=== PATIENT | female | born 1960 | race Caucasian/White ===

== ENCOUNTER 2022-11-07 22:40 | Observation (INO) | payer OTHER ==
[2022-11-08 00:10] LABS: Absolute Lymphocytes (CBC) 2.2 K/uL (0.7-4.9); Hematocrit 37.3 % (36.0-45.0); Lymphocytes % 25.5 % (15.3-44.8); MCV 86.2 fL (80-100); MPV 7.3 fL (7.6-11.3); RBC Red Blood Cell Count 4.32 M/uL (3.86-4.86)
[2022-11-08 00:13] LABS: Protime INR 1.18
[2022-11-08 00:28] LABS: ALT/SGPT 21 U/L (13-56); AST/SGOT 15 U/L (15-37); Albumin 3.3 g/dL (3.4-5.0); Alkaline Phosphatase 120 U/L (45-117); BUN Blood Urea Nitrogen 24 mg/dL (7-18); Bicarbonate 26 mEq/L (21-32); Bilirubin Total 0.2 mg/dL (0.2-1.0); Glomerular Filtration Rate 78 ml/min (=/>90); Glucose Level 127 mg/dL (74-106); NT PRO-BNP 248 pg/mL (<125); Potassium 3.2 mEq/L (3.5-5.1); Protein, Total 6.7 g/dL (6.4-8.2); Sodium Level 138 mEq/L (136-145); Troponin High Sensitivity 34.7 pg/mL (<58.9)
[2022-11-08 00:30] LABS: Bilirubin Direct < 0.1 mg/dL (0-0.2)
[2022-11-08 00:31] LABS: Bilirubin Indirect, Calculated ND mg/dL (0.2-0.8)
[2022-11-08] MEDS ORDERED: METHYLPREDNISOLONE 125 MG INJ ONE (01:18)
[2022-11-08] MEDS ORDERED: ONDANSETRON 4 MG/2 ML VIAL ONE (01:19)
[2022-11-08] MEDS ORDERED: LEVALBUTEROL 1.25 MG/3 ML NEB ONE (01:19)
[2022-11-08 01:39] LABS: Specific Gravity 1.013 (1.005-1.030); Urine Bacteria <20 /HPF (<20); Urine Bilirubin NEGATIVE (Negative); Urine Blood Negative (Negative); Urine Clarity Clear (Clear); Urine Color Light-Yellow (Yellow); Urine Glucose NEGATIVE (Negative); Urine Mucus 1+ /HPF (None Seen); Urine Protein NEGATIVE (Negative); Urine RBC <5 /HPF (None Seen); Urine Urobilinogen Normal (Normal)
[2022-11-08] MEDS ORDERED: POTASSIUM 25 MEQ EFFERV TAB ONE (01:42)
--- NOTE | 2022-11-08 01:51 | ER ---
Nurse's Notes [facility] Name: Adilia Raajn Age: 62 yrs Sex: Female : 1960 Arrival Date: 11/07/2022 Time: 22:40 Bed 16 Private MD: Diagnosis: Chest pain, unspecified;Obesity, unspecified;Hypertensive heart disease without heart failure;Shortness of breath Presentation: 11/07 23:45 Chief complaint: Patient states: mid to left side chest pain of 6 with lightheadedness, pf1 nausea and left arm numbness,onset 0. Patient stated the symptoms started while sleeping. Patient stated took ASA 162 mg LOFTSMAN/WOMAN. Coronavirus screen: Vaccine status: Patient reports receiving the 2nd dose of the covid vaccine. Moderna Client denies travel out of the [place] in the last 14 days. At this time, the client does not indicate any symptoms associated with coronavirus-19. Ebola Screen: Patient negative for fever greater than or equal to 101.5 degrees Fahrenheit, and additional compatible Ebola Virus Disease symptoms. Initial Sepsis Screen: Does the patient meet any 2 criteria? No. Patient's initial sepsis screen is negative. Does the patient have a suspected source of infection? No. Patient's initial sepsis screen is negative. Risk Assessment: Do you want to hurt yourself or someone else? Patient reports no desire to harm self or others. 23:45 Method Of Arrival: Wheelchair pf1 23:45 Acuity: EVELINA 2 pf1 11/08 02:03 Onset of symptoms was November 07, 2022. rv Historical: - Allergies: 11/07 23:47 No Known Allergies; pf1 - Home Meds: 23:47 losartan oral [Active]; Synthroid Oral [Active]; hydrochlorothiazide Oral [Active]; pf1 Albuterol Inhl [Active]; - PMHx: 23:47 Hypertensive disorder; Hypercholesterolemia; Asthma; Hypothyroidism; pf1 - Immunization history:: Adult Immunizations up to date, Last tetanus immunization: > 10 years ago Flu vaccine is not up to date. - Social history:: Smoking status: Patient denies any tobacco usage or history of. Patient/guardian denies using alcohol, street drugs. Screenin/28 02:02 [facility] ED Fall Risk Assessment (Adult) History of falling in the last 3 months, rv including since admission No falls in past 3 months (0 pts). Abuse screen: Denies threats or abuse. Denies injuries from another. Nutritional screening: No deficits noted. Tuberculosis screening: No symptoms or risk factors identified. Assessment: 00:00 General: Appears uncomfortable, Behavior is calm, cooperative. rv 00:00 Pain: Complains of pain in chest. Neuro: Level of Consciousness is awake, alert, obeys rv commands, Oriented to person, place, time, Appropriate for age. Cardiovascular: Capillary refill < 3 seconds Rhythm is sinus rhythm. Respiratory: Airway is patent. GI: No deficits noted. No signs and/or symptoms were reported involving the gastrointestinal system. : No deficits noted. No signs and/or symptoms were reported regarding the genitourinary system. 01:00 Reassessment: [id number] Antonia Rajan. rv Vital Signs: 11/07 23:45 BP 156 / 89; Pulse 81; Resp 18; Temp 98.1; Pulse Ox 96% on R/A; Weight 127.01 kg; pf1 Height 5 ft. 11 in. ; Pain 6/10; 11/08 00:30 BP 145 / 91; Pulse 78; Resp 16; Pulse Ox 96% on R/A; jb4 11/07 23:45 Body Mass Index 39.05 (127.01 kg, 180.34 cm) pf1 11/07 23:45 Pain Scale: Adult pf1 ED Course: 11/07 22:43 Patient arrived in ED. rv1 22:56 Brad Chua PA is PHCP. cp 22:56 Cooper Martin MD is Attending Physician. cp 23:41 XRAY Chest (1 view) In Process Unspecified. EDMS 23:47 Triage completed. pf1 23:50 Inserted saline lock: 20 gauge in left antecubital area, using aseptic technique. Blood rv collected. 23:50 No provider procedures requiring assistance completed. rv 11/08 00:12 Josue Guzman, GEMA is Primary Nurse. jb4 01:49 Tan Marti MD is Hospitalizing Provider. cp 02:01 Patient admitted, IV remains in place. rv 02:01 Patient has correct armband on for positive identification. Client placed on continuous rv cardiac and pulse oximetry monitoring. NIBP monitoring applied. marketing development specialist on. 02:03 Arm band placed on right wrist. rv Administered Medications: 01:20 Drug: Levalbuterol Inhalation 1.25 mg Route: Inhalation; jb4 01:20 Drug: MethylPrednisoLONE IVP 125 mg Route: IVP; Site: left antecubital; jb4 01:20 Drug: Ondansetron IVP 4 mg Route: IVP; Site: left antecubital; jb4 01:49 Drug: Potassium PO Effervescent Tablet 50 mEq Route: PO; jb4 Medication: 02:02 VIS not applicable for this client. rv Outcome: 01:50 Decision to Hospitalize by Provider. cp 02:02 Admitted to Med/surg accompanied by nurse, via wheelchair, room 212, Report called to rv niels paredes 02:02 Condition: good 02:02 Instructed on the need for admit. 02:03 Patient left the ED. rv Signatures: Dispatcher [employer] EDMS Brad Chua PA PA cp Josue Guzman RN RN jb4 Shravan Scruggs RN RN rv Finley, Pamala, RN RN pf1 Margarita Barry rv1 Corrections: (The following items were deleted from the chart) 11/07 23:54 23:45 Chief complaint: Patient states: mid to left side chest pain of 6 with pf1 lightheadedness, nausea and left arm numbness,onset 2229. Patient stated the symptoms started while sleeping. pf1 11/08 01:30 01:30 Levalbuterol Inhalation 1.25 mg Inhalation jb4 jb4
--- NOTE | 2022-11-08 01:51 | EDPHYS ---
Physician Documentation [facility] [place], [place] Name: Adilia Rajan Age: 62 yrs Sex: Female : 1960 Arrival Date: 11/07/2022 Time: 22:40 Bed 16 Private MD: ED Physician Cooper Martin HPI: 11/07 23:15 This 62 yrs old Female presents to ER via Wheelchair with complaints of Chest Pain. cp 23:15 The patient or guardian reports chest pain that is located primarily in the anterior cp chest wall, left. Onset: just prior to arrival. 23:15 The pain does not radiate. cp 23:15 The chest pain is described as a pressure. Duration: The patient or guardian reports a cp single episode, improved. Historical: - Allergies: 23:47 No Known Allergies; pf1 - Home Meds: 23:47 losartan oral [Active]; Synthroid Oral [Active]; hydrochlorothiazide Oral [Active]; pf1 Albuterol Inhl [Active]; - PMHx: 23:47 Hypertensive disorder; Hypercholesterolemia; Asthma; Hypothyroidism; pf1 - Immunization history:: Adult Immunizations up to date, Last tetanus immunization: > 10 years ago Flu vaccine is not up to date. - Social history:: Smoking status: Patient denies any tobacco usage or history of. Patient/guardian denies using alcohol, street drugs. ROS: 23:20 Constitutional: Negative for body aches, chills, fever, poor PO intake. cp 23:20 Eyes: Negative for injury, pain, redness, and discharge. cp 23:20 Cardiovascular: Positive for chest pain, Negative for edema, palpitations. 23:20 Respiratory: Positive for shortness of breath, Negative for cough. 23:20 Abdomen/GI: Negative for abdominal pain, nausea, vomiting, and diarrhea. 23:20 All other systems are negative. Exam: 22:55 ECG was reviewed by the Attending Physician. cp 23:20 Head/Face: Normocephalic, atraumatic. cp 23:20 Constitutional: The patient appears in no acute distress, alert, awake, non-toxic, well developed, well nourished, anxious, obese. 23:20 Chest/axilla: Inspection: normal. 23:20 Cardiovascular: Rate: normal, Rhythm: regular. 23:20 Respiratory: the patient does not display signs of respiratory distress, Respirations: normal, no use of accessory muscles, no retractions, labored breathing, is not present, Breath sounds: are clear throughout, no decreased breath sounds, no stridor, no wheezing. 23:20 Abdomen/GI: Inspection: abdomen appears normal, Palpation: abdomen is soft and non-tender, in all quadrants. 23:20 Neuro: Orientation: to person, place \T\ time. Mentation: is normal, Motor: moves all fours, strength is normal, Sensation: is normal. Vital Signs: 23:45 BP 156 / 89; Pulse 81; Resp 18; Temp 98.1; Pulse Ox 96% on R/A; Weight 127.01 kg; pf1 Height 5 ft. 11 in. ; Pain /; 11/08 00:30 BP 145 / 91; Pulse 78; Resp 16; Pulse Ox 96% on R/A; jb4 11/07 23:45 Body Mass Index 39.05 (127.01 kg, 180.34 cm) pf1 11/07 23:45 Pain Scale: Adult pf1 MDM: 11/07 22:57 Patient medically screened. 11/08 01:50 Data reviewed: vital signs, nurses notes, lab test result(s), EKG, radiologic studies, cp plain films. 11/07 23:13 Order name: Basic Metabolic Panel; Complete Time: 00:55 11/08 00:57 Interpretation: Normal except: K 3.2; CL 109; GLUC 127; BUN 24; GFR 78; CA 8.4. 11/07 23:13 Order name: CBC with Diff; Complete Time: 00:55 11/08 00:57 Interpretation: Normal except: MPV 7.3. 11/07 23:13 Order name: D-Dimer; Complete Time: 00:55 11/08 00:57 Interpretation: Reviewed. 11/07 23:13 Order name: LFT's; Complete Time: 00:55 11/08 00:57 Interpretation: Normal except: ALK 120; ALB 3.3; A/G 1.0. 11/07 23:13 Order name: Magnesium; Complete Time: 00:55 11/07 23:13 Order name: NT PRO-BNP; Complete Time: 00:55 11/07 23:13 Order name: PT-INR; Complete Time: 00:55 cp 11/07 23:13 Order name: Troponin HS; Complete Time: 00:55 cp 11/08 00:58 Interpretation: Reviewed. cp 11/07 23:13 Order name: Urinalysis W/Microscopic; Complete Time: 01:48 cp 11/08 01:09 Order name: D-Dimer cp 11/07 23:13 Order name: XRAY Chest (1 view) cp 11/07 23:13 Order name: EKG; Complete Time: 23:14 cp 11/07 23:13 Order name: Cardiac monitoring; Complete Time: 23:36 cp 11/07 23:13 Order name: EKG - Nurse/Tech; Complete Time: 23:36 cp 11/07 23:13 Order name: IV Saline Lock; Complete Time: 23:36 cp 11/07 23:13 Order name: Labs collected and sent; Complete Time: 23:36 cp 11/07 23:13 Order name: O2 Per Protocol; Complete Time: 23:36 cp 11/07 23:13 Order name: O2 Sat Monitoring; Complete Time: 23:36 cp EC/27 22:55 Rate is 84 beats/min. Rhythm is regular. CO interval is normal. QRS interval is normal. cp QT interval is normal. T waves are Inverted in leads III, aVR. Interpreted by me. Reviewed by me. Administered Medications: 11/08 01:20 Drug: Levalbuterol Inhalation 1.25 mg Route: Inhalation; jb4 01:20 Drug: MethylPrednisoLONE IVP 125 mg Route: IVP; Site: left antecubital; jb4 01:20 Drug: Ondansetron IVP 4 mg Route: IVP; Site: left antecubital; jb4 01:49 Drug: Potassium PO Effervescent Tablet 50 mEq Route: PO; jb4 Disposition: 07:34 Co-signature as Attending Physician, Cooper Martin MD I agree with the assessment sp4 and plan of care. I reviewed the patient's care provided by the Advanced Practice Provider and agree with the diagnosis and treatment plan. Disposition Summary: 11/08/22 01:50 Hospitalization Ordered Hospitalization Status: Observation cp Provider: Tan Marti cp Location: Telemetry/MedSurg (observation) cp Condition: Stable cp Problem: new cp Symptoms: have improved cp Bed/Room Type: Standard cp Room Assignment: 212(11/08/22 01:59) cg Diagnosis - Chest pain, unspecified cp - Obesity, unspecified cp - Hypertensive heart disease without heart failure cp - Shortness of breath cp Forms: - Medication Reconciliation Form cp - SBAR form cp Signatures: Dispatcher [employer] EDMS Bladimir Banda, JAYJAY-C DIETARY SERVICES MANAGER-Cla1 Brad Chua PA PA cp Garcia, Cindy, RN RN cg Bryson, James, RN RN jb4 Susan Bangura RN RN pf1 Cooper Martin MD MD sp4 Corrections: (The following items were deleted from the chart) 01:59 01:50 cp cg
--- NOTE | 2022-11-08 02:08 | P.HP ---
Certification for Inpatient Patient admitted to: Observation With expected LOS: <2 Midnights Patient will require the following post-hospital care: None Practitioner: I am a practitioner with admitting privileges, knowledge of patient current condition, hospital course, and medical plan of care. Services: Services provided to patient in accordance with Admission requirements found in Title 42 Section 412.3 of the Code of Federal Regulations <Bladimir Bandaur - Last Filed: 11/08/22 01:59> Patient History Date of Service: 11/08/22 History of Present Illness: 62-year-old female with history of hypothyroidism, hypertension, asthma presents to the emergency department chief complaint of palpitations, chest pain. She reports that she woke from her sleep with palpitations, chest pressure rating to left arm, nausea. She drove to the emergency department her symptoms lasted for approximately 15 minutes. She reports similar episodes previously for the last 2 years last tress test was greater than 10 years ago has never had a heart catheterization. She has been diagnosed with asthma she does report dyspnea with exertion for the last few years as well. D-dimer is negative initial has not to be troponin within normal limits EKG without STEMI criteria. ED provider wishes to admit under observation for ACS rule out. - Past Medical/Surgical History -: Hypertension -: Hypothyroidism -: None Psychosocial/ Personal History: Patient lives at home with family - Family History Family History: Reviewed- Non-Contributory - Social History Alcohol use: No CD- Drugs: No Caffeine use: Yes Place of Residence: Home <Bladimir Banda Paul Gibbs - Last Filed: 11/08/22 01:59> Date of Service: 11/08/22 <Tan Marti - Last Filed: 11/08/22 13:00> Review of Systems 10-point ROS is otherwise unremarkable Respiratory: SOB with Excertion Cardiovascular: Chest Pain, Palpitations <Bladimir Banda Paul Gibbs - Last Filed: 11/08/22 01:59> Physical Examination - Physical Exam General: Alert, In no apparent distress, Oriented x3, Obese HEENT: Atraumatic, PERRLA, Mucous membr. moist/pink, EOMI, Sclerae nonicteric Neck: Supple, 2+ carotid pulse no bruit, No LAD, Without JVD or thyroid abnormality Respiratory: Clear to auscultation bilaterally, Normal air movement Cardiovascular: Regular rate/rhythm, Normal S1 S2 Gastrointestinal: Normal bowel sounds, No tenderness Musculoskeletal: No tenderness Integumentary: No rashes Neurological: Normal gait, Normal speech, Normal strength at 5/5 x4 extr, Normal tone, Normal affect Lymphatics: No axilla or inguinal lymphadenopathy - Studies Laboratory Data (last 24 hrs) 11/07/22 23:54: PT 13.0 H, INR 1.18 11/07/22 23:54: WBC 8.50, Hgb 12.4, Hct 37.3, Plt Count 237 11/07/22 23:54: Sodium 138, Potassium 3.2 L, BUN 24 H, Creatinine 0.85, Glucose 127 H, Magnesium 2.0, Total Bilirubin 0.2, AST 15, ALT 21, Alkaline Phosphatase 120 H <Bladimir Banda - Last Filed: 11/08/22 01:59> - Studies Laboratory Data (last 24 hrs) 11/07/22 23:54: PT 13.0 H, INR 1.18 11/07/22 23:54: WBC 8.50, Hgb 12.4, Hct 37.3, Plt Count 237 11/07/22 23:54: Sodium 138, Potassium 3.2 L, BUN 24 H, Creatinine 0.85, Glucose 127 H, Magnesium 2.0, Total Bilirubin 0.2, AST 15, ALT 21, Alkaline Phosphatase 120 H <Tan Marti - Last Filed: 11/08/22 13:00> Assessment and Plan - Plan Assessment: Chest pain/palpitations rule out ACS/arrhythmia Hypertension Hypothyroidism Hypokalemia Plan: Chest pain/palpitations rule out ACS/arrhythmia Last stress test approximate 10 years ago has never had cardiac catheterization, D-dimer negative. Cardiology consult in place we will monitor on telemetry, trend troponins. Continue aspirin. Appreciate further per from cardiology. Hypertension Hypothyroidism Continue home medications. Hypokalemia Replaced in ED, protocol in place. DVT PPX: Lovenox Code status: Full Discharge Plan: Home Plan to discharge in: 24 Hours - Advance Directives Does patient have a Living Will: No Does patient have a Durable POA for Healthcare: No - Code Status/Comfort Care Code Status Assessed: Yes (Full code) Critical Care: No Time Spent Managing Pts Care (In Minutes): 55 <Bladimir Banda - Last Filed: 11/08/22 01:59> - Plan ] Patient seen and examined on rounds this morning elevated trop / NSTEMI atypical pain 5 second run of SVT ~5am this morning while in bathroom monitor on telemetry echo /lexiscan ordered for wednesday; tomorrow is TSH low, free T4 upper limit of normal range; decrease dose from 200 to 175 <Tan Marti - Last Filed: 11/08/22 13:00>
[2022-11-08] MEDS ORDERED: ONDANSETRON 4 MG/2 ML VIAL IV PRN (02:24)
[2022-11-08 02:25] VITALS: BMI 38.6
[2022-11-08 03:16] LABS: Absolute Lymphocytes (CBC) 1.7 K/uL (0.7-4.9); Hematocrit 37.1 % (36.0-45.0); Lymphocytes % 21.2 % (15.3-44.8); MCV 86.6 fL (80-100); MPV 7.4 fL (7.6-11.3); RBC Red Blood Cell Count 4.29 M/uL (3.86-4.86)
[2022-11-08 03:47] LABS: Potassium 3.8 mEq/L (3.5-5.1); Thyroid Stimulating Hormone 0.164 uIU/mL (0.358-3.740)
[2022-11-08 04:01] LABS: Troponin High Sensitivity 87.4 pg/mL (<58.9)
[2022-11-08] MEDS ORDERED: LEVOTHYROXINE SOD 0.1 MG TAB PO SCH (06:00)
--- NOTE | 2022-11-08 07:25 | EKG ---
Test Date: 2022-11-07 Test Time: 22:45:20 Green Plumber: MEASUREMENT RESULTS: Intervals: Rate: 84 MN: 192 QRSD: 92 QT: 354 QTc: 418 [place]: P: 24 MN: 192 QRS: 37 T: -19 INTERPRETIVE STATEMENTS: Normal sinus rhythm Left ventricular hypertrophy with repolarization abnormality Abnormal ECG No previous ECG available for comparison Electronically Signed On 11-08-22 07:25:05 CDT by Gilmer Miramontes
[2022-11-08] MEDS: ACETAMINOPHEN 500 MG TAB PO PRN ×2 (07:46→16:06)
--- NOTE | 2022-11-08 08:00 | P.PN ---
Date of Service: 11/09/22 Subjective: no chest pain overnight / this morning feels ok today no events on telemetry overnight ROS: 10 point ROS as noted above, otherwise negative Physical Exam: GEN: Alert, oriented, NAD HEENT: Normal conjunctiva, sclera anicteric CV: Regular rate and rhythm, no edema Pulm: Nonlabored respirations on room air ABD: Soft, nontender, nondistended Integumentary: No rashes Neuro: Normal speech, anxious vitals reviewed Problem List: NSTEMI, Chest pain Hypertension Hypothyroidism Hypokalemia Chest pain CXR (11/07): Enlarged heart with no definite pulmonary congestion. Atelectatic change versus infiltrate and layering pleural fluid versus overlying soft tissue lower lungs bilaterally Last stress test approximate 10 years ago has never had cardiac catheterization, D-dimer negative. monitor on telemetry trop trended up, now down echo pending Cardiology consulted tentative plan for stress test friday 11/10 Continue aspirin Hypertension Hypothyroidism Continue home medications Hypokalemia Replaced in ED, protocol in place VTE: Lovenox Code: Full Dispo: Home 24hrs; pending stress test result
[2022-11-08] MEDS: hydroCHLOROthiazide 12.5 MG CAP PO SCH (08:28)
[2022-11-08] MEDS: ASPIRIN EC 81 MG TAB PO SCH (08:28)
[2022-11-08] MEDS: VALSARTAN 80 MG TAB PO SCH (08:28)
[2022-11-08] MEDS ORDERED: POTASSIUM CL SA 10 MEQ TAB PO ONE (09:00)
[2022-11-08] MEDS ORDERED: ENOXAPARIN 40 MG/0.4 ML SQ SCH (09:00)
--- NOTE | 2022-11-08 09:17 | CON ---
Date of Consultation: 11/08/2022 Reason For Consultation: Non-STEMI. History Of Present Illness: Ms. Rajan is a 62-year-old female with history of hypertension, dyslipi demia, hypothyroidism, and asthma. She sees Dr. Hamlin, recently moved from [place] to be clos e to her son. Came in with multiple symptoms including left arm pain, sharp chest pain, lightheadedn ess, dizziness, nausea. Denied any vomiting. Denied any PND, orthopnea, pedal edema, palpitation, s yncope, fever or chills. Troponin was mildly elevated at 87. Her TSH was 0.164. Her D-dimer was sl ightly elevated. She is now on aspirin, Lovenox, Diovan, hydrochlorothiazide, and Lipitor and is con tinuing to have some intermittent sharp chest pain, but is very comfortable. Past Medical History: Stated earlier. Allergies: NONE. Review of Systems: Negative. Social History: Negative. Family History: Noncontributory. Medications: At home include inhalers, valsartan, Synthroid, hydrochlorothiazide. Physical Examination: Was mostly done by Kaia and the emergency room physician. Vital Signs: Stable, afebrile, sinus rhythm. HEENT: Negative. Neck: Supple with no bruit. Chest: Clear. Cardiac: Normal. Abdomen: Benign. Extremities: Revealed no clubbing, cyanosis, or edema. Diagnostic Data: As stated earlier. EKG is nonspecific. Impression And Plan: The patient with multiple cardiac risk factors including hypertension, dyslipid emia. She has mildly elevated troponin. Symptoms are rather atypical and include lightheadedness, d izziness, nausea, arm pain. I suggest to continue her aspirin, Lipitor, and Lovenox. I think it shayy l be reasonable to do an echocardiogram and Lexiscan on Wednesday morning, 11/10/2022, and then decide on a heart catheterization depending on the Lexiscan results. Case will be discussed with Dr. Marti. Her blood pressure, dyslipidemia, and hypothyroidism are fairly well controlled. Her TSH is 0.164. Thyroid dose may have to be reduced. I will leave that up to Dr. Marti. NB/MODL Voice ID: [id number] Report ID: [id number]
[2022-11-08] MEDS ORDERED: Fluticasone/Umeclidin/Vilanter [Trelegy Ellipta 100-62.5-25] Blst.W.Dev IH SCH (13:00)
[2022-11-08] MEDS: ATORVASTATIN 40 MG TAB PO SCH (20:37)
[2022-11-09] MEDS: ACETAMINOPHEN 500 MG TAB PO PRN ×3 (01:15→18:25)
[2022-11-09 03:32] LABS: Absolute Lymphocytes (CBC) 2.1 K/uL (0.7-4.9); Hematocrit 36.4 % (36.0-45.0); Lymphocytes % 14.3 % (15.3-44.8); MCV 86.7 fL (80-100); MPV 7.6 fL (7.6-11.3)
[2022-11-09 03:50] LABS: Potassium 3.8 mEq/L (3.5-5.1)
[2022-11-09] MEDS: LEVOTHYROXINE SOD 0.125 MG TAB PO SCH (06:57)
[2022-11-09] MEDS ORDERED: POTASSIUM 25 MEQ EFFERV TAB PO ONE (09:00)
[2022-11-09] MEDS: ASPIRIN EC 81 MG TAB PO SCH (09:06)
[2022-11-09] MEDS: hydroCHLOROthiazide 12.5 MG CAP PO SCH (09:06)
[2022-11-09] MEDS: VALSARTAN 80 MG TAB PO SCH (09:06)
--- NOTE | 2022-11-09 12:17 | RAD REPORT ---
EXAM DESCRIPTION: RAD - Chest Single View - 11/07/2022 11:39 pm CLINICAL HISTORY: 62 years Female CHEST PAIN COMPARISON: None TECHNIQUE: AP view of the chest was obtained. FINDINGS: Cardiac silhouette is enlarged. Central vessels are not increased. Prominent ascending aor ta. Marked overlying soft tissue. Layering pleural fluid difficult to exclude. Possible airspace opacitie s lower lungs bilaterally. IMPRESSION: Enlarged heart with no definite pulmonary congestion. Atelectatic change versus infiltra te and layering pleural fluid versus overlying soft tissue lower lungs bilaterally. Electronically signed by: Jojo Hernández MD 11/08/2022 12:14 AM CDT Due to temporary technical issues with the PACS/Fluency reporting system, reports are being signed by the in house radiologists without review as a courtesy to insure prompt reporting. The interpreting radiologist is fully responsible for the content of the report.
[2022-11-09] MEDS: ATORVASTATIN 40 MG TAB PO SCH (20:20)
[2022-11-10 02:05] VITALS: O2SAT 97
[2022-11-10 04:04] LABS: Hematocrit 36.5 % (36.0-45.0); MCV 87.1 fL (80-100); MPV 7.7 fL (7.6-11.3); RBC Red Blood Cell Count 4.19 M/uL (3.86-4.86)
[2022-11-10 04:21] LABS: Magnesium 2.1 mg/dL (1.6-2.4); Potassium 3.8 mEq/L (3.5-5.1)
[2022-11-10] MEDS: ACETAMINOPHEN 500 MG TAB PO PRN (04:28)
[2022-11-10] MEDS: LEVOTHYROXINE SOD 0.125 MG TAB PO SCH (06:17)
[2022-11-10] MEDS ORDERED: REGADENOSON 0.4 MG/5 ML SYR IV ONE ×2 (07:26→07:29)
[2022-11-10 08:04] VITALS: TEMP 97.3
[2022-11-10] MEDS: VALSARTAN 80 MG TAB PO SCH (08:24)
[2022-11-10] MEDS: ASPIRIN EC 81 MG TAB PO SCH (08:24)
[2022-11-10] MEDS: hydroCHLOROthiazide 12.5 MG CAP PO SCH (08:24)
[2022-11-10 12:11] VITALS: BP 140/94
--- NOTE | 2022-11-10 12:50 | RAD REPORT ---
EXAM DESCRIPTION: NM - Rest Stress Cardiac Imaging - 11/10/2022 12:24 pm CLINICAL HISTORY: CP COMPARISON: No comparisons TECHNIQUE: The patient was administered approximately 10.5 mCi of Tc 99m Sestamibi prior to resting SPECT imaging of the heart. The patient was then administered approximately 29.2 mCi of Tc 99m Sestam ibi following exercise or pharmacologic stress. Multiplanar SPECT images were reviewed. FINDINGS: No stress induced ischemic defect is seen to suggest stress induced ischemia. Large fixed defect involving the inferior aspect of the lateral wall basal through apical segments, concerning fo r sequelae of infarct. The end diastolic volume is 137 ml, the end systolic volume is 52 ml, and the ejection fraction is 62 %. IMPRESSION: Large fixed defect involving the inferior aspect lateral wall basal to apical segments, concerning for sequelae of infarct. No evidence of a stress-induced myocardial ischemia. Normal left ventricular ejection fraction, 62%.
--- NOTE | 2022-11-10 14:40 | P.DS ---
Admission Date: 11/08/22 Discharge Date: 11/10/22 Disposition: ROUTINE DISCHARGE Discharge Condition: FAIR Brief History of Present Illness: 62-year-old female with history of hypothyroidism, hypertension, asthma presents to the emergency department chief complaint of palpitations, chest pain. She reports that she woke from her sleep with palpitations, chest pressure rating to left arm, nausea. She reports similar episodes previously for the last 2 years. Last tress test was greater than 10 years ago has never had a heart catheterization. She has been diagnosed with asthma and she report dyspnea with exertion for the last few years as well. D-dimer negative, initial has not to be troponin within normal limits, EKG without STEMI criteria. Patient hospitalized for further management. Hospital Course: Chest pain CXR (11/07): Enlarged heart with no definite pulmonary congestion. Atelectatic change versus infiltrate and layering pleural fluid versus overlying soft tissue lower lungs bilaterally Last stress test approximate 10 years ago has never had cardiac catheterization, D-dimer negative. trop trended up before trending down. Patient was treated briefly with full dose Lovenox. She was seen by cardiology who recommended stress test. Stress test showed fixed defect, no reversible ischemia. Dr. Miramontes recommend discharge for outpatient follow up. Patient started on aspirin and Lipitor. Lipid profile was within normal limit. Hypertension Hypothyroidism Continued home medications Vital Signs/Physical Exam: Temp Pulse Resp BP Pulse Ox 97.3 F 85 16 140/94 H 98 11/10/22 08:00 11/10/22 12:00 11/10/22 12:00 11/10/22 12:00 11/10/22 12:00 General: Alert, In no apparent distress, Oriented x3 HEENT: Mucous membr. moist/pink Neck: JVD not distended Respiratory: Clear to auscultation bilaterally, Normal air movement Cardiovascular: Regular rate/rhythm, Normal S1 S2 Gastrointestinal: Normal bowel sounds, Soft and benign, Non-distended Musculoskeletal: No swelling Integumentary: No rashes, No cyanosis Neurological: Normal strength at 5/5 x4 extr Laboratory Data at Discharge: WBC 8.90 thou/uL (4.3-10.9) 11/10/22 02:48 Hgb 12.4 g/dL (12.0-15.0) 11/10/22 02:48 Hct 36.5 % (36.0-45.0) 11/10/22 02:48 Plt Count 228 thou/uL (152-406) 11/10/22 02:48 PT 13.0 SECONDS (9.5-12.5) H 11/07/22 23:54 INR 1.18 11/07/22 23:54 Sodium 141 mEq/L (136-145) 11/10/22 02:48 Potassium 3.8 mEq/L (3.5-5.1) 11/10/22 02:48 BUN 25 mg/dL (7-18) H 11/10/22 02:48 Creatinine 0.82 mg/dL (0.55-1.02) 11/10/22 02:48 Glucose 98 mg/dL (74-106) 11/10/22 02:48 Magnesium 2.1 mg/dL (1.6-2.4) 11/10/22 02:48 Total Bilirubin 0.2 mg/dL (0.2-1.0) 11/07/22 23:54 AST 15 U/L (15-37) 11/07/22 23:54 ALT 21 U/L (13-56) 11/07/22 23:54 Alkaline Phosphatase 120 U/L (45-117) H 11/07/22 23:54 Triglycerides 145 mg/dL (<150) 11/08/22 02:33 Cholesterol 177 mg/dL (<200) 11/08/22 02:33 HDL Cholesterol 36 mg/dL (40-60) L 11/08/22 02:33 Cholesterol/HDL Ratio 4.92 11/08/22 02:33 Home Medications: Fluticasone/Umeclidin/Vilanter [Trelegy Ellipta 100-62.5-25] 1 puff IH PRN 11/08/22 Valsartan 80 mg PO DAILY 11/08/22 hydroCHLOROthiazide [Hydrochlorothiazide*] 12.5 mg PO DAILY 11/08/22 Aspirin [Aspirin EC] 81 mg PO DAILY #30 tab 11/10/22 Atorvastatin Calcium [Lipitor] 40 mg PO BEDTIME #30 tab 11/10/22 Levothyroxine [Synthroid] 50 mcg PO [id number] #30 tab 11/10/22 Levothyroxine [Synthroid] 125 mcg PO [id number] #30 tab 11/10/22 New Medications: Aspirin [Aspirin EC] 81 mg PO DAILY #30 tab Atorvastatin Calcium [Lipitor] 40 mg PO BEDTIME #30 tab Levothyroxine [Synthroid] 125 mcg PO [id number] #30 tab Levothyroxine [Synthroid] 50 mcg PO [id number] #30 tab Diet: AHA Activity: Ad naa Followup: Gilmer Miramontes MD [ACTIVE - CAN ADMIT] - (Within 2 weeks) Time spent managing pt's care (in minutes): 33
--- NOTE | 2022-11-11 07:45 | TREADPHA ---
DX: CHEST PAIN Date of Study: 11/10/2022 Ht: 5' 11 " Wt: 277 lb 0 oz Consulting Physician: DEMETRIS MEDICATIONS: TYLENOL, ASPIRIN, LIPITOR, SYNTHROID, ZOFRAN, DIOVAN, HYDROCHLOROTHIAZIDE HISTORY: 62 YEAR OLD FEMALE WITH COMPLIANTS OF CHEST PAIN. HISTORY OF THYROID DISEASE, ANXIETY, HYPERTENSION, AND HYPERLIPIDEMIA. NO SMOKING, NO DRINKING. PHYSICIAL EXAMINATION: RESTING B.P.: 174/109 RESTING H.R.: 75 RESTING EKG: NORMAL PROTOCOL: PHARMACOLOGIC EXERCISE TIME: 3:30 B.P. AT PEAK STRESS: 177/85 IMPRESSION: LEXISCAN INJECTED, FOLLOWED BY CARDIOLITE, PER PROTOCOL. SEE NUCLEAR MEDICINE REPORT. NO SUPRAVENTRICULAR TACHYCARDIA, VENTRICULAR TACHYCARDIA, PREMATURE ATRIAL COMPLEXES, PREMATURE VENTRICULAR COMPLEXES. PATIENT REPORTS CHEST PAIN FIVE OUT OF TEN ON PAIN SCALE.
--- NOTE | 2022-11-11 08:32 | ECHO ---
HEIGHT: 5 ft 11 in WEIGHT: 277 lb 0 oz DATE OF STUDY: 11/10/[address]: Gilmer Miramontes MD 2-DIMENSIONAL: YES M.MODE: YES DOPPLER: YES COLOR FLOW: YES TDS: PORTABLE: YES DEFINITY: BUBBLE STUDY: DIAGNOSIS: CHEST PAIN CARDIAC HISTORY: CATHERIZATION: SURGERY: PROSTHETIC VALVE: PACEMAKER: MEASUREMENTS (cm) DIASTOLIC (NORMALS) SYSTOLIC (NORMALS) IVSd 1.5 (0.6-1.2) LA Diam 3.0 (1.9-4.0) LVEF 63% LVIDd 5.1 (3.5-5.7) LVIDs 3.4 (2.0-3.5) %FS 34% LVPWd 1.4 (0.6-1.2) Ao Diam 3.4 (2.0-3.7) 2 DIMENSIONAL ASSESSMENT: RIGHT ATRIUM: NORMAL LEFT ATRIUM: NORMAL RIGHT VENTRICLE: NORMAL LEFT VENTRICLE: LEFT VENTRICULAR HYPERTROPHY TRICUSPID VALVE: NORMAL MITRAL VALVE: NORMAL PULMONIC VALVE: NORMAL AORTIC VALVE: NORMAL PERICARDIAL EFFUSION: NONE AORTIC ROOT: NORMAL LEFT VENTRICULAR WALL MOTION: NORMAL DOPPLER/COLOR FLOW: NORMAL COMMENTS: 1. LEFT VENTRICULAR HYPERTROPHY. NORMAL EJECTION FRACTION. 2. NO WALL MOTION ABNORMALITY TECHNOLOGIST: DEBBIE ASHLEY
--- NOTE | 2022-11-11 12:36 | PN ---
Date of Progress Note: 11/09/2022 Ms. Rajan was seen for atypical chest pain, lightheadedness, nausea, left arm pain. Has a history o f hypertension, dyslipidemia, hypothyroidism, and asthma. She does have a mildly elevated troponin o f 87. She is on inhalers, valsartan, Synthroid, hydrochlorothiazide, aspirin, Lovenox as well as Lip itor. Had some mild intermittent chest pain since admission. Troponin has remained stable. Echocar diogram and Lexiscan are pending. We will continue to follow. OTF/VIPUL Voice ID: [id number] Report ID: [id number]
--- NOTE | 2022-11-11 15:31 | PN ---
Date of Progress Note: 11/10/2022 Ms. Rajan underwent an echocardiogram, which showed left ventricular hypertrophy with normal ejectio n fraction. Chest pain was atypical. Mildly elevated troponin. Lexiscan was normal. The patient c an be discharged whenever it is okay with primary care physician. We will be happy to see her as an outpatient if her symptoms persist. Continue present regimen for now. OTF/VIPUL Voice ID: [id number] Report ID: [id number]
== END 2022-11-10 15:42 | disposition home or self-care (01) ==
LOC: ER 22:40 → 2ND 11-08 01:48
PROVIDERS: ADMIT Hospitalist; ATTEND Internal Medicine
DX: R07.9 Chest pain, unspecified (principal); I10 Essential (primary) hypertension; E03.9 Hypothyroidism, unspecified; E87.6 Hypokalemia; J45.909 Unspecified asthma, uncomplicated
CPT/HCPCS: 93005; 93017; 93306; 85025 ×4; 81001; 80048 ×4; 36415 ×2; 83735 ×2; 85610; 80061; 85379 ×2; 80076; 84443; 84484 ×4; 84439; 83880; 71045; 78452; 96375; 96374; 99285; J1650 ×5; J2785 ×2; J7614; J2930; J2405; G0378 ×5; A9500

== ENCOUNTER 2023-01-08 19:56 | Inpatient (IN) | payer OTHER ==
[2023-01-08 20:27] LABS: Absolute Lymphocytes (CBC) 4.9 K/uL (0.7-4.9); Lymphocytes % 39.4 % (15.3-44.8); MCV 87.5 fL (80-100); MPV 7.5 fL (7.6-11.3); RBC Red Blood Cell Count 4.46 M/uL (3.86-4.86)
[2023-01-08 20:37] LABS: Protime INR 1.23
[2023-01-08] MEDS ORDERED: ASPIRIN 81 MG CHEWABLE TABLET ONE (20:42)
[2023-01-08] MEDS ORDERED: METOPROLOL TARTRATE 5 MG/5 ML INJ IV ONE (20:42)
[2023-01-08 20:45] LABS: ALT/SGPT 25 U/L (13-56); AST/SGOT 21 U/L (15-37); Albumin 3.7 g/dL (3.4-5.0); Alkaline Phosphatase 161 U/L (45-117); BUN Blood Urea Nitrogen 22 mg/dL (7-18); Bicarbonate 27 mEq/L (21-32); Bilirubin Total 0.3 mg/dL (0.2-1.0); Glomerular Filtration Rate 64 ml/min (=/>90); Glucose Level 118 mg/dL (74-106); Magnesium 2.2 mg/dL (1.6-2.4); NT PRO-BNP 239 pg/mL (<125); Potassium 3.5 mEq/L (3.5-5.1); Protein, Total 7.2 g/dL (6.4-8.2); Sodium Level 140 mEq/L (136-145); Troponin High Sensitivity 30.1 pg/mL (<58.9)
[2023-01-08 20:46] LABS: Bilirubin Direct < 0.1 mg/dL (0-0.2); Bilirubin Indirect, Calculated ND mg/dL (0.2-0.8)
[2023-01-08] MEDS ORDERED: ENOXAPARIN 100 MG/ML SYR SQ ONE (21:50)
--- NOTE | 2023-01-08 22:02 | RAD REPORT ---
EXAM DESCRIPTION: CT - Chest For Pe Angio - 01/08/2023 9:31 pm CLINICAL HISTORY: Chest pain COMPARISON: None. TECHNIQUE: Dynamically enhanced axial 3 mm thick images of the chest were obtained during administra tion of 100 mL Isovue 370 IV contrast. Coronal and oblique reconstruction images were generated and r eviewed. Exam utilizes a protocol for optimal evaluation of pulmonary arterial tree. Maximum intensity projections 3D imaging was utilized All CT scans are performed using dose optimization technique as appropriate and may include automated exposure control or mA/KV adjustment according to patient size. FINDINGS: Mildly suboptimal opacification the pulmonary arteries. A pulmonary embolus is not seen. Prominence of the main pulmonary artery can be seen with pulmonary arterial hypertension Proximal ascending thoracic aortic aneurysm 4.5 centimeters Moderate cardiomegaly A pleural effusion is not seen. A pericardial effusion is not seen. A lung consolidation is not present. Bilateral breast implants IMPRESSION: Negative for a pulmonary embolism. Proximal ascending thoracic aortic aneurysm 4.5 centimeters
--- NOTE | 2023-01-08 22:02 | RAD REPORT ---
EXAM DESCRIPTION: Sanjay Single View01/08/2023 8:54 pm CLINICAL HISTORY: Chest pain COMPARISON: October 2022 FINDINGS: The lungs appear clear of acute infiltrate. The heart is moderately enlarged Mild ascending thoracic aortic aneurysm
--- NOTE | 2023-01-09 00:10 | EDPHYS ---
Physician Documentation [facility] Name: Adilia Rajan Age: 62 yrs Sex: Female : 1960 Arrival Date: 01/08/2023 Time: 19:56 Bed 20 Private MD: ED Physician Ramón Dominguez HPI: 01/08 20:20 This 62 yrs old Female presents to ER via Wheelchair with complaints of Palpitations. cp 20:20 The patient or guardian reports chest pain that is located primarily in the substernal cp area. Onset: 30 minute(s) ago. Duration: The patient or guardian reports a single episode, that is still ongoing, and worsening. Associated signs and symptoms: Pertinent positives: SOB, palpitations, Pertinent negatives: cough, fever, syncope. 20:20 The chest pain is described as a pressure, constant. cp Historical: - Allergies: 20:13 No Known Allergies; cm10 - PMHx: 20:13 Asthma; Hypercholesterolemia; Hypertensive disorder; Hypothyroidism; cm10 - Immunization history:: Adult Immunizations unknown. - Social history:: Smoking status: unknown. ROS: 20:25 Constitutional: Negative for body aches, chills, fever, poor PO intake. cp 20:25 Eyes: Negative for injury, pain, redness, and discharge. cp 20:25 ENT: Negative for drainage from ear(s), ear pain, sore throat, difficulty swallowing, difficulty handling secretions. 20:25 Cardiovascular: Positive for chest pain, palpitations, Negative for edema. 20:25 Respiratory: Positive for shortness of breath, Negative for cough, wheezing. 20:25 Abdomen/GI: Negative for abdominal pain, vomiting, diarrhea, constipation. 20:25 Back: Negative for pain at rest, pain with movement. 20:25 Neuro: Negative for altered mental status, dizziness, headache, syncope, weakness. 20:25 All other systems are negative. Exam: 20:30 Constitutional: The patient appears alert, awake, non-diaphoretic, non-toxic, well cp developed, well nourished, obese, in obvious pain, uncomfortable. 20:30 Head/Face: Normocephalic, atraumatic. cp 20:30 Eyes: Periorbital structures: appear normal, Conjunctiva: normal, no exudate, no injection, Sclera: no appreciated abnormality, Lids and lashes: appear normal, bilaterally. 20:30 ENT: External ear(s): are unremarkable, Nose: is normal, Mouth: Lips: moist, Oral mucosa: pink and intact, moist, Posterior pharynx: is normal, airway is patent, no erythema, no exudate. 20:30 Neck: ROM/movement: is normal, is supple, without pain, no range of motions limitations. 20:30 Chest/axilla: Inspection: normal, Palpation: crepitus, is not appreciated, tenderness, is not appreciated. 20:30 Cardiovascular: Rate: tachycardic, Rhythm: irregular. 20:30 Respiratory: the patient does not display signs of respiratory distress, Respirations: cp shallow respirations, that is mild, Breath sounds: are clear throughout, no decreased breath sounds, no stridor, no wheezing. 20:30 Abdomen/GI: Inspection: obese Palpation: abdomen is soft and non-tender, in all cp quadrants. 20:30 Back: pain, is absent, ROM is normal. 20:30 Neuro: Orientation: to person, place \T\ time. Mentation: is normal, Motor: moves all fours, strength is normal, Sensation: is normal. 01/09 00:35 ECG was reviewed by the Attending Physician. cp Vital Signs: 01/08 20:00 BP 165 / 98; Pulse 77; Resp 15; Pulse Ox 97% on R/A; Weight 127.01 kg; Height 5 ft. 11 eh3 in. ; 20:15 BP 154 / 98; Pulse 64; Resp 15; Pulse Ox 95% on R/A; eh3 20:30 BP 153 / 101; Pulse 64; Resp 15; Pulse Ox 95% on R/A; eh3 20:45 BP 147 / 94; Pulse 62; Resp 12; Pulse Ox 95% on R/A; eh3 21:00 BP 149 / 97; Pulse 66; Resp 15; Pulse Ox 95% on R/A; eh3 21:15 BP 147 / 96; Pulse 67; Resp 14; Pulse Ox 96% on R/A; eh3 21:45 BP 151 / 85; Pulse 62; Resp 18; Pulse Ox 95% on R/A; eh3 01/09 00:00 BP 113 / 54; Pulse 50; Resp 18 S; Pulse Ox 96% on R/A; ha1 01:00 BP 127 / 80; Pulse 49; Resp 16 S; Pulse Ox 96% on R/A; ha1 02:00 BP 136 / 73; Pulse 49; Resp 18 S; Pulse Ox 99% on R/A; ha1 01/08 20:00 Body Mass Index 39.05 (127.01 kg, 180.34 cm) eh3 MDM: 01/08 20:13 Patient medically screened. 21:00 Differential diagnosis: abnormal EKG, acute myocardial infarction, anxiety, arrythmia, cp pneumonia, pneumothorax, pulmonary embolus, stable angina, thoracic aortic disection, unstable angina. 01/09 00:00 The patient was given aspirin in the Emergency Department. Data reviewed: vital signs, nurses notes, lab test result(s), EKG, radiologic studies, CT scan, plain films. Management of patient was discussed with the following: Data Center Consultant: DR Gracia to discuss results of CT chest that showed aneurysm, reports patient can be admitted to hospitalist. 00:05 Management of patient was discussed with the following: Hospitalist: Mahnaz Montes De Oca NP will admit after discussion. 00:05 I considered the following discharge prescriptions or medication management in the emergency department Medications were administered in the Emergency Department. See MAR. Independent interpretation of the following test(s) in the Emergency Department EKG: See my EKG interpretation above. Care significantly affected by the following chronic conditions: Hypertension, Obesity. Counseling: I had a detailed discussion with the patient and/or guardian regarding: the historical points, exam findings, and any diagnostic results supporting the discharge/admit diagnosis, lab results, radiology results, the need for further work-up and treatment in the hospital. Response to treatment: the patient's symptoms have markedly improved after treatment, and as a result, I will admit patient. 01/08 20:13 Order name: Basic Metabolic Panel; Complete Time: 20:48 01/08 20:48 Interpretation: Normal except: GLUC 118; BUN 22; GFR 64. 01/08 20:13 Order name: CBC with Diff; Complete Time: 20:48 01/08 20:48 Interpretation: Normal except: WBC 12.40; MPV 7.5. 01/08 20:13 Order name: LFT's; Complete Time: 20:48 01/08 20:13 Order name: Magnesium; Complete Time: 20:48 01/08 20:13 Order name: NT PRO-BNP; Complete Time: 20:48 cp 01/08 20:13 Order name: PT-INR; Complete Time: 20:48 cp 01/08 20:13 Order name: Troponin HS; Complete Time: 20:48 cp 01/09 00:02 Order name: Troponin High Sensitivity; Complete Time: 01:40 cp 01/09 01:40 Interpretation: Abnormal: Troponin HS 62.5. cp 01/09 01:51 Order name: Urinalysis w/ reflexes EDMS 01/09 01:51 Order name: Basic Metabolic Panel EDMS 01/09 01:51 Order name: Basic Metabolic Panel EDMS 01/09 01:51 Order name: CBC with Automated Diff EDMS 01/09 01:51 Order name: CBC with Automated Diff EDMS 01/09 01:51 Order name: CBC with Automated Diff EDMS 01/09 01:51 Order name: Magnesium EDMS 01/09 01:51 Order name: Magnesium EDMS 01/09 01:51 Order name: Magnesium EDMS 01/09 01:52 Order name: Troponin High Sensitivity EDMS 01/08 20:13 Order name: XRAY Chest (1 view); Complete Time: 22:11 cp 01/08 22:11 Interpretation: Report review. 01/08 20:49 Order name: CT Chest For PE Angio; Complete Time: 22:11 cp 01/08 20:13 Order name: EKG; Complete Time: 20:14 cp 01/08 20:13 Order name: Cardiac monitoring; Complete Time: 20:20 cp 01/08 20:13 Order name: EKG - Nurse/Tech; Complete Time: 20:20 cp 01/08 20:13 Order name: IV Saline Lock; Complete Time: 20:20 cp 01/08 20:13 Order name: Labs collected and sent; Complete Time: 20:20 cp 01/08 20:13 Order name: O2 Per Protocol; Complete Time: 20:20 cp 01/08 20:13 Order name: O2 Sat Monitoring; Complete Time: 20:20 cp 01/09 00:02 Order name: EKG - Nurse/Tech; Complete Time: 00:40 cp EC:35 Rate is 48 beats/min. Rhythm is regular. MA interval is normal. QRS interval is normal. cp QT interval is normal. T waves are Inverted in leads aVL, aVR. Interpreted by me. Reviewed by me. Administered Medications: 01/08 20:13 Drug: Metoprolol IVP 5 mg Route: IVP; Site: right antecubital; eh3 20:13 Drug: Metoprolol PO 50 mg Route: PO; eh3 21:55 Follow up: Response: No adverse reaction eh3 20:18 Drug: Metoprolol IVP 5 mg Route: IVP; Site: right antecubital; eh3 20:23 Drug: Metoprolol IVP 5 mg Route: IVP; Site: right antecubital; eh3 21:55 Follow up: Response: No adverse reaction eh3 20:37 Not Given (Physician Discretion): Aspirin PO Chewable Tablet 324 mg PO once; 81 mg eh3 tablets x 4 20:38 Drug: Aspirin PO Chewable Tablet 162 mg Route: PO; eh3 21:55 Follow up: Response: No adverse reaction eh3 21:30 Drug: Enoxaparin Sub-Q 1 mg/kg Route: Sub-Q; Site: abdomen; eh3 21:55 Follow up: Response: No adverse reaction eh3 Disposition: 01/09 02:34 Co-signature as Attending Physician, Ramón Dominguez MD I reviewed the patient's care rt provided by the Advanced Practice Provider and agree with the diagnosis and treatment plan. Disposition Summary: 01/09/23 00:10 Hospitalization Ordered Hospitalization Status: Observation cp Provider: Mahnaz Montes De Oca cp Location: Telemetry/MedSurg (observation) cp Condition: Stable cp Problem: new cp Symptoms: have improved cp Bed/Room Type: Standard Room Assignment: 210(01/09/23 01:46) mw Diagnosis - Angina pectoris, unspecified cp - Aortic aneurysm of unspecified site, without rupture cp - Unspecified atrial fibrillation cp Forms: - Medication Reconciliation Form cp - SBAR form cp Signatures: Dispatcher [employer] Enedelia Blue RN RN mw Page, Corey, PA PA cp Hall, Erin, RN RN 3 Ramón Dominguez MD MD rt Yumi Gamez RN RN cm10 Corrections: (The following items were deleted from the chart) 01:46 00:10 cp mw
--- NOTE | 2023-01-09 00:10 | ER ---
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 PT taken straight cm10 back to room 20 and EKG was performed. Coronavirus screen: At this time, unable to obtain information related to travel outside the [place] Ebola Screen: Patient denies travel to an Ebola-affected area in the 21 days before illness onset. No symptoms or risks identified at this time. Initial Sepsis Screen: Does the patient meet any 2 criteria? No. Patient's initial sepsis screen is negative. Does the patient have a suspected source of infection? No. Patient's initial sepsis screen is negative. Risk Assessment: Do you want to hurt yourself or someone else? Patient reports no desire to harm self or others. Onset of symptoms was January 08, 2023. 20:12 Method Of Arrival: Wheelchair cm10 20:12 Acuity: EVELINA 2 cm10 Historical: - Allergies: 20:13 No Known Allergies; cm10 - PMHx: 20:13 Asthma; Hypercholesterolemia; Hypertensive disorder; Hypothyroidism; cm10 - Immunization history:: Adult Immunizations unknown. - Social history:: Smoking status: unknown. Screenin:15 [facility] ED Fall Risk Assessment (Adult) Score/Fall Risk Level 0 - 2 = Low Risk. Abuse eh3 screen: Denies threats or abuse. Denies injuries from another. Nutritional screening: No deficits noted. Tuberculosis screening: No symptoms or risk factors identified. Assessment: 20:15 General: Appears distressed, uncomfortable, Behavior is anxious, crying. Pain: eh3 Complains of pain in chest. Neuro: Level of Consciousness is awake, alert, obeys commands, Oriented to person, place, time, situation. Cardiovascular: Capillary refill < 3 seconds. Respiratory: Airway is patent Respiratory effort is even, unlabored, Respiratory pattern is regular, symmetrical. GI: Abdomen is round non-distended. Derm: Skin is healthy with good turgor. Musculoskeletal: Circulation, motion, and sensation intact. 20:45 Reassessment: Patient appears in no apparent distress at this time. Patient and/or 3 family updated on plan of care and expected duration. Pain level reassessed. Patient is alert, oriented x 3, equal unlabored respirations, skin warm/dry/pink. 21:15 Reassessment: Patient appears in no apparent distress at this time. Patient and/or 3 family updated on plan of care and expected duration. Pain level reassessed. Patient is alert, oriented x 3, equal unlabored respirations, skin warm/dry/pink. 21:45 Reassessment: Patient appears in no apparent distress at this time. Patient and/or 3 family updated on plan of care and expected duration. Pain level reassessed. Patient is alert, oriented x 3, equal unlabored respirations, skin warm/dry/pink. 01/09 00:00 General: Appears comfortable, Behavior is calm, cooperative. Pain: Complains of pain in ha1 chest Pain does not radiate. Pain at worst was 9 out of 10 on a pain scale. Quality of pain is described as pressure. Neuro: Level of Consciousness is awake, alert, obeys commands, Oriented to person, place, time, situation. Cardiovascular: Patient's skin is warm and dry. Cardiovascular: Reports chest pain, Heart tones S1 S2 present Rhythm is sinus bradycardia. Respiratory: Airway is patent Respiratory effort is even, unlabored, Respiratory pattern is regular, symmetrical. GI: No signs and/or symptoms were reported involving the gastrointestinal system. Abdomen is round non-distended, obese. 01:00 Reassessment: Patient and/or family updated on plan of care and expected duration. Pain ha1 level reassessed. Patient is alert, oriented x 3, equal unlabored respirations, skin warm/dry/pink. 02:00 Reassessment: Patient and/or family updated on plan of care and expected duration. Pain ha1 level reassessed. Patient is alert, oriented x 3, equal unlabored respirations, skin warm/dry/pink. pain 3/10. Vital Signs: 01/08 20:00 BP 165 / 98; Pulse 77; Resp 15; Pulse Ox 97% on R/A; Weight 127.01 kg; Height 5 ft. 11 3 in. ; 20:15 BP 154 / 98; Pulse 64; Resp 15; Pulse Ox 95% on R/A; eh3 20:30 BP 153 / 101; Pulse 64; Resp 15; Pulse Ox 95% on R/A; eh3 20:45 BP 147 / 94; Pulse 62; Resp 12; Pulse Ox 95% on R/A; eh3 21:00 BP 149 / 97; Pulse 66; Resp 15; Pulse Ox 95% on R/A; eh3 21:15 BP 147 / 96; Pulse 67; Resp 14; Pulse Ox 96% on R/A; eh3 21:45 BP 151 / 85; Pulse 62; Resp 18; Pulse Ox 95% on R/A; eh3 01/09 00:00 BP 113 / 54; Pulse 50; Resp 18 S; Pulse Ox 96% on R/A; ha1 01:00 BP 127 / 80; Pulse 49; Resp 16 S; Pulse Ox 96% on R/A; ha1 02:00 BP 136 / 73; Pulse 49; Resp 18 S; Pulse Ox 99% on R/A; 1 01/08 20:00 Body Mass Index 39.05 (127.01 kg, 180.34 cm) [facility] ED Course: 01/08 20:11 Patient arrived in ED. cm10 20:12 Ramón Dominguez MD is Attending Physician. rt 20:12 Brad Chua PA is PHCP. cp 20:13 Triage completed. cm10 20:13 Arm band placed on Patient placed in an exam room. EKG completed in triage. Results cm10 shown to MD. 20:13 Inserted saline lock: 18 gauge in right antecubital area, using aseptic technique. cm10 Blood collected. 20:13 Inserted saline lock: 20 gauge in left antecubital area, using aseptic technique. cm10 20:15 Patient has correct armband on for positive identification. Bed in low position. Call [facility] light in reach. Side rails up X2. Adult w/ patient. Client placed on continuous cardiac and pulse oximetry monitoring. NIBP monitoring applied. 20:20 Diane Huynh RN is Primary Nurse. eh3 20:56 XRAY Chest (1 view) In Process Unspecified. EDMS 21:32 CT Chest For PE Angio In Process Unspecified. EDUT 01/09 00:00 Report received from GEMA Eason. ha1 00:10 Mahnaz Montes De Oca is Hospitalizing Provider. cp 00:40 Troponin High Sensitivity Sent. ha1 02:24 No provider procedures requiring assistance completed. Patient admitted, IV remains in ha1 place. 02:54 Provided Education on: need for admission. ha1 Administered Medications: 01/08 20:13 Drug: Metoprolol IVP 5 mg Route: IVP; Site: right antecubital; eh3 20:13 Drug: Metoprolol PO 50 mg Route: PO; eh3 21:55 Follow up: Response: No adverse reaction eh3 20:18 Drug: Metoprolol IVP 5 mg Route: IVP; Site: right antecubital; eh3 20:23 Drug: Metoprolol IVP 5 mg Route: IVP; Site: right antecubital; eh3 21:55 Follow up: Response: No adverse reaction eh3 20:37 Not Given (Physician Discretion): Aspirin PO Chewable Tablet 324 mg PO once; 81 mg eh3 tablets x 4 20:38 Drug: Aspirin PO Chewable Tablet 162 mg Route: PO; eh3 21:55 Follow up: Response: No adverse reaction 3 21:30 Drug: Enoxaparin Sub-Q 1 mg/kg Route: Sub-Q; Site: abdomen; eh3 21:55 Follow up: Response: No adverse reaction eh3 Medication: 01/09 02:54 VIS not applicable for this client. 1 Outcome: 00:10 Decision to Hospitalize by Provider. cp 02:24 Condition: stable 1 02:53 Admitted to Med/surg accompanied by nurse, via stretcher, with chart, Report called to ha1 GEMA Franco 02:53 Discharge instructions given to patient. 02:55 Patient left the ED. [facility] Signatures: Dispatcher [employer] EDMS Brad Chua PA PA Diane Bowen RN RN 3 Yuly Hoff RN RN ha1 Ramón Dominguez MD MD rt Yumi Gamez RN RN cm10
--- NOTE | 2023-01-09 01:42 | P.HP ---
Certification for Inpatient Patient admitted to: Observation With expected LOS: <2 Midnights Patient will require the following post-hospital care: None Practitioner: I am a practitioner with admitting privileges, knowledge of patient current condition, hospital course, and medical plan of care. Services: Services provided to patient in accordance with Admission requirements found in Title 42 Section 412.3 of the Code of Federal Regulations Patient History Date of Service: 01/09/23 Reason for admission: Palpitations History of Present Illness: 62-year-old with a past medical history of asthma, hyperlipidemia, hypertension, hypothyroidism presents to the emergency room for chest pain, palpitations. On arrival to the ER EKG was A-fib RVR rate 171, she was treated with 50 of metoprolol p.o., Lopressor IV. Converted to normal sinus rhythm. She reported chest pain, shortness of breath, anxiety with palpitations. She denied fever, recent infection, nausea vomiting diarrhea, abdominal pain, dysuria. Chest pain resolved after heart rate converted to sinus rhythm. Plan to admit for A-fib RVR, elevated troponin, mild acute kidney injury, laboratory evaluation , leukocytosis 12.0 BUN 22, creatinine 1.0, troponin 62.5, BNP 239. CTA IMPRESSION: Negative for a pulmonary embolism, chest x-ray FINDINGS: The lungs appear clear of acute infiltrate. The heart is moderately enlarged, Mild ascending thoracic aortic aneurysm. Samia Goyal consulted prior to admission will see as inpatient. Allergies No Known Allergies Allergy (Unverified 11/08/22 02:23) Home Medications: Fluticasone/Umeclidin/Vilanter [Trelegy Ellipta 100-62.5-25] 1 puff IH PRN 11/08/22 Valsartan 80 mg PO DAILY 11/08/22 hydroCHLOROthiazide [Hydrochlorothiazide*] 12.5 mg PO DAILY 11/08/22 Aspirin [Aspirin EC] 81 mg PO DAILY #30 tab 11/10/22 Atorvastatin Calcium [Lipitor] 40 mg PO BEDTIME #30 tab 11/10/22 Levothyroxine [Synthroid] 50 mcg PO [id number] #30 tab 11/10/22 Levothyroxine [Synthroid] 125 mcg PO [id number] #30 tab 11/10/22 - Past Medical/Surgical History Diabetic: No -: Hypertension -: Hypothyroidism -: Aneurysm -: Asthma -: cataract sx -: Left knee sx,tendon -: Rt shoulder rotator cuff repair Psychosocial/ Personal History: Patient lives at home with family - Family History Father -: Other (see notes) Notes: alcoholic. Aneurysm Mother -: Other (see notes) Notes: hypothyroidism - Social History Smoking Status: Never smoker Alcohol use: No CD- Drugs: No Caffeine use: Yes Review of Systems 10-point ROS is otherwise unremarkable Physical Examination - Physical Exam General: Alert, In no apparent distress, Oriented x3 HEENT: Atraumatic, Normocephalic Neck: Supple, 2+ carotid pulse no bruit, JVD not distended Respiratory: Clear to auscultation bilaterally, Normal air movement Cardiovascular: No edema, Regular rate/rhythm, Normal S1 S2 Capillary refill: <2 Seconds Gastrointestinal: Normal bowel sounds, Soft and benign Musculoskeletal: No clubbing, No swelling Neurological: Normal speech, Normal strength at 5/5 x4 extr - Studies Laboratory Data (last 24 hrs) 01/08/23 01/08/23 01/08/23 20:15 20:15 20:15 WBC 12.40 H Hgb 12.9 Hct 39.0 Plt Count 267 PT 13.5 H INR 1.23 Sodium 140 Potassium 3.5 BUN 22 H Creatinine 1.00 Glucose 118 H Magnesium 2.2 Total Bilirubin 0.3 AST 21 ALT 25 Alkaline Phosphatase 161 H Assessment and Plan - Plan Assessment/Plan A-fib RVR Elevated troponin Mild ascending thoracic aortic aneurysm Leukocytosis-likely reactive Acute kidney injury Hypertension Hypothyroidism DVT prophylaxis Plan: A-fib RVR Elevated troponin Elevated BNP Mild ascending thoracic aortic aneurysm Cardiology consult in place we will monitor on telemetry, trend troponins. Continue aspirin. Metoprolol p.o. and as needed Trend troponins, no reported chest pain currently troponin 62.5, BNP 239. CTA IMPRESSION: Negative for a pulmonary embolism, chest x-ray FINDINGS: The lungs appear clear of acute infiltrate. The heart is moderately enlarged, Mild ascending thoracic aortic aneurysm. Leukocytosis likely reactive leukocytosis 12.0 low Acute kidney injury Trend kidney function, BUN 22, creatinine 1.0, t Hypertension Hypothyroidism Continue home medications. DVT PPX: Lovenox Code status: Full Discharge Plan: Home Plan to discharge in: 24 Hours Discharge Plan: Home Plan to discharge in: 24 Hours - Advance Directives Does patient have a Living Will: No Does patient have a Durable POA for Healthcare: No - Code Status/Comfort Care Code Status: Full Code Physician Review: Patient Assessed, Agree with Above Assessment and Plan Critical Care: No Time Spent Managing Pts Care (In Minutes): 50
[2023-01-09] MEDS ORDERED: ONDANSETRON 4 MG/2 ML VIAL IV PRN (01:49)
[2023-01-09] MEDS ORDERED: METOPROLOL TARTRATE 5 MG/5 ML INJ IV PRN (01:50)
[2023-01-09] MEDS ORDERED: NA CHLORIDE 0.9% 1,000 ML IV SCH (02:00)
[2023-01-09 02:44] LABS: Hematocrit 37.4 % (36.0-45.0); Lymphocytes % 29.1 % (15.3-44.8); MPV 8.6 fL (7.6-11.3)
[2023-01-09 03:12] VITALS: BMI 38.7
[2023-01-09] MEDS: ACETAMINOPHEN 500 MG TAB PO PRN (03:29)
[2023-01-09] MEDS: ALPRAZOLAM 0.25 MG TABLET PO PRN ×3 (03:29→22:21)
[2023-01-09] MEDS: ENOXAPARIN 40 MG/0.4 ML SQ SCH ×2 (05:45→09:00)
[2023-01-09 06:18] LABS: Specific Gravity > 1.030 (1.005-1.030); Urine Bilirubin NEGATIVE (Negative); Urine Blood Negative (Negative); Urine Clarity Clear (Clear); Urine Color Light-Yellow (Yellow); Urine Glucose NEGATIVE (Negative); Urine Protein NEGATIVE (Negative); Urine Urobilinogen Normal (Normal); Urine pH 5.5 (5.0-7.0)
[2023-01-09] MEDS ORDERED: POTASSIUM CL SA 10 MEQ TAB PO ONE (09:35)
--- NOTE | 2023-01-09 10:24 | P.CNS ---
Date of Consult: 01/09/23 Reason for Consult: History of COPD probably recent RI Chief Complaint: Palpitations History of Present Illness: Patient is 62 years of age with a history of Asthma and was admitted in October of this year did follow-up with cardiology and was anxious about doing a cardiac catheterization that was recommended came here to the hospital with palpitation denies any chest pain and EKG changes inverted T waves suggestive of ischemia with elevated enzymes is doing better denies any chest pain she is compliant with her trilogy at home and reverted back to normal sinus rhythm Allergies No Known Allergies Allergy (Verified 01/09/23 03:13) Home Medications: Fluticasone/Umeclidin/Vilanter [Trelegy Ellipta 100-62.5-25] 1 puff IH PRN 11/08/22 Valsartan 80 mg PO DAILY 11/08/22 hydroCHLOROthiazide [Hydrochlorothiazide*] 12.5 mg PO DAILY 11/08/22 Aspirin [Aspirin EC] 81 mg PO DAILY #30 tab 11/10/22 Atorvastatin Calcium [Lipitor] 40 mg PO BEDTIME #30 tab 11/10/22 Levothyroxine [Synthroid] 50 mcg PO [id number] #30 tab 11/10/22 Levothyroxine [Synthroid] 125 mcg PO [id number] #30 tab 11/10/22 - Past Medical/Surgical History Diabetic: No -: Hypertension -: Hypothyroidism -: Aneurysm -: Asthma -: cataract sx -: Left knee sx,tendon -: Rt shoulder rotator cuff repair Psychosocial/ Personal History: Patient lives at home with family - Family History Father Medical History: Other (see notes) Notes: alcoholic. Aneurysm Mother Medical History: Other (see notes) Notes: hypothyroidism - Social History Smoking Status: Unknown if ever smoked Alcohol use: No CD- Drugs: No Caffeine use: Yes Review of Systems 10-point ROS is otherwise unremarkable Physical Examination Temp Pulse Resp BP Pulse Ox 98.6 F 53 16 112/55 L 94 01/09/23 08:00 01/09/23 08:00 01/09/23 08:00 01/09/23 08:00 01/09/23 08:00 General: Alert, Oriented x3 HEENT: Atraumatic Neck: Supple Respiratory: Clear to auscultation bilaterally Cardiovascular: No edema, Regular rate/rhythm, Normal S1 S2 Laboratory Data (last 24 hrs) 01/09/23 01/09/23 01/08/23 02:09 02:09 20:15 WBC 10.20 Hgb 12.1 Hct 37.4 Plt Count 205 PT 13.5 H INR 1.23 Sodium Potassium BUN Creatinine Glucose Magnesium 2.2 Total Bilirubin AST ALT Alkaline Phosphatase 01/08/23 01/08/23 20:15 20:15 WBC 12.40 H Hgb 12.9 Hct 39.0 Plt Count 267 PT INR Sodium 140 Potassium 3.5 BUN 22 H Creatinine 1.00 Glucose 118 H Magnesium 2.2 Total Bilirubin 0.3 AST 21 ALT 25 Alkaline Phosphatase 161 H - Problems (1) Non-STEMI (non-ST elevated myocardial infarction) Current Visit: Yes Status: Acute Plan: 62 years of age admitted with a non-STEMI her cardiac enzymes are elevated EKG is abnormal. With a cardiac catheterization we will plan to anticoagulate her start her on aspirin and beta-buddy seen by Dr. Gracia as an outpatient and was very reluctant to undergo cardiac catheterization as recommended to her in addition patient also has a thoracic aneurysm measuring 4.[address] Gracia and he will see her and probably schedule her for a cardiac cath chest x-ray is clear (2) Asthma Current Visit: Yes Status: Acute Plan: Patient is doing well appears to me that her asthma is well controlled on trilogy Qualifiers: Asthma severity: mild Asthma persistence: intermittent (3) Anxiety Current Visit: Yes Status: Acute Plan: To her [id number] she may have significant underlying anxiety we will start her on some Xanax as needed add Lexapro now
[2023-01-09] MEDS: METOPROLOL XL 25 MG TAB PO SCH ×2 (10:30→20:59)
[2023-01-09] MEDS ORDERED: Fluticasone/Umeclidin/Vilanter [Trelegy Ellipta 100-62.5-25] Blst.W.Dev IH SCH (10:30)
[2023-01-09] MEDS: ESCITALOPRAM 20 MG TAB PO SCH (10:55)
[2023-01-09] MEDS: DULERA 200/5 (MOMETASONE/FORMOTEROL) INHALER IH SCH ×2 (10:55→21:00)
[2023-01-09] MEDS ORDERED: ENOXAPARIN 100 MG/ML SYR SQ ONE (11:00)
--- NOTE | 2023-01-09 12:27 | P.PN ---
Subjective Date of Service: 01/09/23 Chief Complaint: Palpitations Patient denies any complaint. She denies any chest pain She reports intermittent anxiety. Physical Examination - Vital Signs Temperature: 98.6 F Blood Pressure: 112/55 Pulse: 53 Respirations: 16 Pulse Ox (%): 94 - Physical Exam General: Alert, In no apparent distress, Oriented x3 HEENT: Mucous membr. moist/pink Neck: Supple, JVD not distended Respiratory: Clear to auscultation bilaterally, Normal air movement Cardiovascular: No edema, Regular rate/rhythm, Normal S1 S2 Gastrointestinal: Normal bowel sounds, Soft and benign, Non-distended, No tenderness Musculoskeletal: No swelling Integumentary: No rashes, No cyanosis Neurological: Normal strength at 5/5 x4 extr, Cranial nerves 3-12 intact Lymphatics: No axilla or inguinal lymphadenopathy - Studies Laboratory Data (last 24 hrs) 01/09/23 01/09/23 01/08/23 02:09 02:09 20:15 WBC 10.20 Hgb 12.1 Hct 37.4 Plt Count 205 PT 13.5 H INR 1.23 Sodium Potassium BUN Creatinine Glucose Magnesium 2.2 Total Bilirubin AST ALT Alkaline Phosphatase 01/08/23 01/08/23 20:15 20:15 WBC 12.40 H Hgb 12.9 Hct 39.0 Plt Count 267 PT INR Sodium 140 Potassium 3.5 BUN 22 H Creatinine 1.00 Glucose 118 H Magnesium 2.2 Total Bilirubin 0.3 AST 21 ALT 25 Alkaline Phosphatase 161 H Assessment And Plan - Current Problems (Diagnosis) (1) Non-STEMI (non-ST elevated myocardial infarction) Current Visit: Yes Status: Acute (2) Anxiety Current Visit: Yes Status: Acute (3) Asthma Current Visit: Yes Status: Acute Qualifiers: Asthma severity: mild Asthma persistence: intermittent - Plan Diagnosis A-fib RVR NSTEMI` Mild ascending thoracic aortic aneurysm Hypertension Hypothyroidism Anxiety disorder Asthma Plan: Troponin mildly elevated but trended flat. Patient most recent stress test showed fixed defect, no reversible ischemia. She is presenting with similar symptoms. Patient noted to have atrial fibrillation on presentation. She spontaneously converted to sinus rhythm. Full dose Lovenox given elevated troponin and A-fib Cardiology consulted to evaluate. Patient currently has sinus bradycardia and may not tolerate beta-buddy Pulmonary input appreciated. Antianxiety medications Bronchodilators for asthma. Monitor and correct electrolytes.
[2023-01-09 13:27] LABS: Thyroid Stimulating Hormone 1.96 uIU/mL (0.358-3.740); Troponin High Sensitivity 55.2 pg/mL (<58.9)
[2023-01-09] MEDS ORDERED: MORPHINE 2 MG/ML SYR IV ONE (20:42)
[2023-01-09] MEDS ORDERED: TRAMADOL HCL 50 MG TAB PO PRN (20:43)
[2023-01-09] MEDS: ATORVASTATIN 40 MG TAB PO SCH (21:00)
[2023-01-10 03:47] LABS: Absolute Lymphocytes (CBC) 2.2 K/uL (0.7-4.9); Hematocrit 34.4 % (36.0-45.0); Lymphocytes % 30.2 % (15.3-44.8); MPV 7.4 fL (7.6-11.3); RBC Red Blood Cell Count 3.91 M/uL (3.86-4.86)
[2023-01-10 04:05] LABS: Magnesium 2.2 mg/dL (1.6-2.4); Potassium 3.9 mEq/L (3.5-5.1)
[2023-01-10] MEDS: ACETAMINOPHEN 500 MG TAB PO PRN ×2 (05:14→13:36)
[2023-01-10] MEDS: LEVOTHYROXINE SOD 0.05 MG TABLET PO SCH (05:14)
[2023-01-10] MEDS: DULERA 200/5 (MOMETASONE/FORMOTEROL) INHALER IH SCH ×2 (08:46→20:41)
[2023-01-10] MEDS: hydroCHLOROthiazide 12.5 MG CAP PO SCH (08:48)
[2023-01-10] MEDS: ESCITALOPRAM 20 MG TAB PO SCH (08:49)
[2023-01-10] MEDS: ASPIRIN EC 81 MG TAB PO SCH (08:50)
[2023-01-10] MEDS: VALSARTAN 80 MG TAB PO SCH (08:51)
[2023-01-10] MEDS: METOPROLOL XL 25 MG TAB PO SCH (08:52)
[2023-01-10] MEDS ORDERED: POTASSIUM CL SA 10 MEQ TAB PO ONE (09:00)
[2023-01-10] MEDS ORDERED: NITROGLYCERIN 0.4 MG/TAB SL PRN (10:19)
--- NOTE | 2023-01-10 10:19 | P.PN ---
Subjective Date of Service: 01/10/23 Chief Complaint: Non-STEMI Subjective: Improving (Is improving doing well she had an episode of chest pain relieved by nitroglycerin yesterday for the palpitations shortness of breath) Review of Systems Unremarkable Physical Examination - Vital Signs Temperature: 97.1 F Blood Pressure: 130/60 Pulse: 53 Respirations: 16 Pulse Ox (%): 95 - Physical Exam General: Alert, Oriented x3 Neck: Supple Respiratory: Clear to auscultation bilaterally Cardiovascular: No edema, Regular rate/rhythm, Normal S1 S2 Assessment And Plan - Current Problems (Diagnosis) (1) Non-STEMI (non-ST elevated myocardial infarction) Current Visit: Yes Status: Acute Plan: Patient admitted with a non-STEMI she is doing well did have an episode of chest pain reduce her dose of metoprolol to 1.5 mg mg daily due to bradycardia continue with at the anticoagulation weight echocardiogram cardiac evaluation possible cardiac cath (2) Asthma Current Visit: Yes Status: Acute Plan: Patient is doing well appears to me that her asthma is well controlled on trilogy Qualifiers: Asthma severity: mild Asthma persistence: intermittent (3) Anxiety Current Visit: Yes Status: Acute Plan: To her [id number] she may have significant underlying anxiety we will start her on some Xanax as needed add Lexapro now Physician Review: Patient Assessed, Agree with Above Assessment and Plan
--- NOTE | 2023-01-10 12:18 | P.PN ---
Subjective Date of Service: 01/10/23 Chief Complaint: Non-STEMI Patient has no new complaint today. She denies any chest pain Physical Examination - Vital Signs Temperature: 97.1 F Blood Pressure: 130/60 Pulse: 53 Respirations: 16 Pulse Ox (%): 95 - Physical Exam General: Alert, In no apparent distress, Oriented x3 HEENT: Mucous membr. moist/pink Neck: JVD not distended Respiratory: Clear to auscultation bilaterally, Normal air movement Cardiovascular: No edema, Regular rate/rhythm, Normal S1 S2 Gastrointestinal: Normal bowel sounds, Soft and benign, Non-distended, No tenderness Musculoskeletal: No swelling Integumentary: No rashes, No cyanosis Neurological: Normal strength at 5/5 x4 extr Assessment And Plan - Current Problems (Diagnosis) (1) Non-STEMI (non-ST elevated myocardial infarction) Current Visit: Yes Status: Acute (2) Anxiety Current Visit: Yes Status: Acute (3) Asthma Current Visit: Yes Status: Acute Qualifiers: Asthma severity: mild Asthma persistence: intermittent - Plan Diagnosis A-fib RVR NSTEMI` Mild ascending thoracic aortic aneurysm Hypertension Hypothyroidism Anxiety disorder Asthma Plan: Troponin mildly elevated but trended flat. Patient most recent stress test showed fixed defect, no reversible ischemia. She presented with similar symptoms. Patient noted to have atrial fibrillation on presentation. She spontaneously converted to sinus rhythm. Continue full dose Lovenox given elevated troponin and A-fib Cardiology consulted to evaluate. Patient currently has sinus bradycardia and may not tolerate beta-buddy Pulmonary Dr. Shabazz is following. Antianxiety medications Bronchodilators for asthma. Monitor and correct electrolytes.
--- NOTE | 2023-01-10 13:14 | EKG ---
Test Date: 2023-01-09 Test Time: 00:29:32 Handle Assembler: SALVATORE MEASUREMENT RESULTS: Intervals: Rate: 48 WA: 198 QRSD: 98 QT: 494 QTc: 441 [place]: P: 41 WA: 198 QRS: 30 T: 90 INTERPRETIVE STATEMENTS: Sinus bradycardia T wave abnormality, consider lateral ischemia Abnormal ECG Compared to ECG 11/07/2022 22:45:20 T-wave abnormality now present Possible ischemia now present Sinus rhythm no longer present Left ventricular hypertrophy no longer present Early repolarization no longer present Electronically Signed On 01-10-23 13:11:17 CDT by John Gracia
--- NOTE | 2023-01-10 13:14 | EKG ---
Test Date: 2023-01-08 Test Time: 20:26:51 Electrical Controls Engineer: EVER MEASUREMENT RESULTS: Intervals: Rate: 64 NC: 198 QRSD: 104 QT: 442 QTc: 455 [place]: P: 42 NC: 198 QRS: 13 T: 44 INTERPRETIVE STATEMENTS: Normal sinus rhythm Voltage criteria for left ventricular hypertrophy Nonspecific ST abnormality Abnormal ECG Compared to ECG 11/07/2022 22:45:20 ST (T wave) deviation now present Early repolarization no longer present Electronically Signed On 01-10-23 13:11:50 CDT by John Gracia
--- NOTE | 2023-01-10 13:39 | CON ---
Date of Consultation: 01/10/2023 Reason For Consultation: Chest pain. History Of Present Illness: This is a 62-year-old female, history of hypertension, dyslipidemia, hyp othyroidism, asthma, presented to the emergency room with palpitations and chest pain. She was in at rial fibrillation with rapid ventricular response, converted to normal sinus rhythm on metoprolol. S he does have exertional chest pain and had a borderline abnormal stress test and we are planning for a coronary angiogram on an outpatient basis. Past Medical History: Hypertension, paroxysmal atrial fibrillation, hypothyroidism, thoracic aorta a neurysm. Medications: Refer to reconciliation sheet for detailed list. Allergies: NO KNOWN DRUG ALLERGIES. Family History: No premature coronary artery disease or cancer. Social History: She does not smoke or drink. Does not use any drugs. Review of Systems: All systems reviewed and they were negative except what mentioned in HPI. Physical Examination: Vital Signs: Reviewed. Head and Neck: Pupils are equal, reactive to light. Intact eye movements. No JVD. No cervical lym phadenopathy. Neck is supple. Thyroid is not enlarged. Lungs: Clear to auscultation bilaterally. No rhonchi, wheezing, or crackles. No accessory muscle u se. Heart: Regular rate and rhythm. No extra sounds. Abdomen: Soft, nontender. Bowel sounds positive. No organomegaly. No masses or hernia. No rigidi ty or rebound. Extremities: No edema, clubbing, or cyanosis. Intact pulses. Skin: No rash. Neurologic: Alert, awake, oriented x3. No acute focal deficits appreciated. Investigations: Troponin peaked at 74. BUN 17, creatinine 0.79, and hemoglobin is 11.5. Assessment And Recommendations: 1.Chest pain with positive troponin suggestive of non-ST elevation myocardial infarction. Keep n.p. o. past midnight, plan for coronary angiogram tomorrow morning. 2.Thoracic aorta aneurysm is 4.5 cm. This needs close monitoring. Repeat CT scan in 3 months and shelby cooper sure her blood pressure and heart rate are controlled. 3.Hypertension. Recommend to increase the metoprolol to 50 mg twice a day. 4.Dyslipidemia. Continue statin. SR/MODL Voice ID: [id number] Report ID: [id number]
[2023-01-10] MEDS: ATORVASTATIN 40 MG TAB PO SCH (20:39)
[2023-01-10] MEDS ORDERED: METOPROLOL XL 25 MG TAB PO SCH (21:00)
[2023-01-10] MEDS: ALPRAZOLAM 0.25 MG TABLET PO PRN (22:42)
[2023-01-11] MEDS: ACETAMINOPHEN 500 MG TAB PO PRN (04:01)
[2023-01-11 04:03] LABS: Magnesium 2.2 mg/dL (1.6-2.4); Phosphorus 3.6 mg/dL (2.5-4.9); Potassium 3.9 mEq/L (3.5-5.1)
[2023-01-11] MEDS: LEVOTHYROXINE SOD 0.05 MG TABLET PO SCH (05:51)
[2023-01-11] MEDS: VALSARTAN 80 MG TAB PO SCH (09:08)
[2023-01-11] MEDS: ESCITALOPRAM 20 MG TAB PO SCH (09:09)
[2023-01-11] MEDS: hydroCHLOROthiazide 12.5 MG CAP PO SCH (09:09)
[2023-01-11] MEDS: ASPIRIN EC 81 MG TAB PO SCH (09:10)
[2023-01-11] MEDS: DULERA 200/5 (MOMETASONE/FORMOTEROL) INHALER IH SCH (09:10)
[2023-01-11] MEDS ORDERED: LORazepam 2 MG/ML VIAL IV ONE (12:35)
[2023-01-11] MEDS ORDERED: LORazepam 2 MG/ML VIAL ONE (12:49)
[2023-01-11] MEDS ORDERED: NA CHLORIDE 0.9% 500 ML ONE (12:59)
[2023-01-11] MEDS ORDERED: HEPARIN 5000 UNIT/ML 1 ML VIAL ONE (14:07)
[2023-01-11] MEDS ORDERED: FENTANYL CITR 100 MCG/2 ML ONE (14:07)
[2023-01-11] MEDS ORDERED: HEPA 1000U/500MLS 2,000 UNIT/1,000 ML BAG IV ONE (14:07)
[2023-01-11] MEDS ORDERED: LIDOCAINE 1% 20 ML MDV ONE (14:07)
[2023-01-11] MEDS ORDERED: MIDAZOLAM HCL 2 MG/2 ML INJ ONE ×2 (14:07→15:15)
[2023-01-11] MEDS ORDERED: VERAPAMIL HCL 10 MG/4 ML VIAL IV ONE (14:08)
[2023-01-11] MEDS ORDERED: ATROPINE SULF 1 MG/10 ML SYR IV ONE (14:08)
[2023-01-11] MEDS ORDERED: ASPIRIN 325 MG TAB ONE (14:08)
[2023-01-11] MEDS ORDERED: CLOPIDOGREL 75 MG TABLET ONE (14:08)
[2023-01-11] MEDS ORDERED: HEPARIN 10,000 UNIT/10 ML VIAL IV ONE (14:08)
[2023-01-11] MEDS ORDERED: TICAGRELOR 90 MG TABLET PO ONE (14:08)
--- NOTE | 2023-01-11 16:12 | P.DS ---
Admission Date: 01/10/23 Discharge Date: 01/11/23 Disposition: ROUTINE DISCHARGE Discharge Condition: FAIR Reason for Admission: Non-STEMI - Problems (1) Non-STEMI (non-ST elevated myocardial infarction) Status: Acute (2) Anxiety Status: Acute (3) Asthma Status: Acute Qualifiers: Asthma severity: mild Asthma persistence: intermittent Brief History of Present Illness: 62-year-old with a past medical history of asthma, hyperlipidemia, hypertension, hypothyroidism presented to the emergency room for chest pain, and palpitations. On arrival to the ER EKG was A-fib RVR rate 171, she was treated with 50 of metoprolol p.o.,and Lopressor IV. She converted to normal sinus rhythm. She reported chest pain, shortness of breath, anxiety with palpitations. She denied fever, recent infection, nausea vomiting diarrhea, abdominal pain, dysuria. Chest pain resolved after heart rate converted to sinus rhythm. Laboratory evaluation showed leukocytosis 12.0, BUN 22, creatinine 1.0, troponin 62.5, BNP 239. CTA IMPRESSION: Negative for a pulmonary embolism, chest x-ray FINDINGS: The lungs appear clear of acute infiltrate. The heart is moderately enlarged, Mild ascending thoracic aortic aneurysm. Patient admitted for for A-fib RVR and elevated troponin. Hospital Course: Diagnosis A-fib RVR NSTEMI` Mild ascending thoracic aortic aneurysm Hypertension Hypothyroidism Anxiety disorder Asthma Patient admitted to the medical floor and started on full dose Lovenox for elevated troponin and A-fib anticoagulation. She was also started on Toprol-XL. Troponin mildly elevated but trended flat. Patient most recent stress test showed fixed defect, no reversible ischemia. Patient noted to have atrial fibrillation on presentation. She spontaneously converted to sinus rhythm. Cardiology consulted to evaluate. Patient was seen by Dr. Gracia who performed cardiac catheterization. No intervention during cardiac catheterization Cardiac monitoring revealed sinus bradycardia on Toprol-XL. Pulmonary Dr. Shabazz was consulted to assist with management. She was placed on antianxiety medications-escitalopram. She needed Xanax as needed. She was on bronchodilators for asthma. Patient deemed stable for discharge per Dr. Gracia. She is discharged with Eliquis for A-fib anticoagulation. Also prescribed Toprol-XL 25 mg daily. She is informed to follow-up with Dr. Shabazz within a week. Patient blood pressure fluctuated, anxiety likely contributing to elevated systolic blood pressure. Case discussed with Dr. Shabazz who follows up with her as outpatient. Dr. Madrid recommended no changes in antihypertensives for now. He will follow-up with patient in the office for adjustment as needed. Vital Signs/Physical Exam: Temp Pulse Resp BP Pulse Ox 97.8 F 62 16 166/97 H 95 01/11/23 11:58 01/11/23 13:42 01/11/23 13:42 01/11/23 13:42 01/11/23 13:42 General: Alert, In no apparent distress, Oriented x3 HEENT: Mucous membr. moist/pink Neck: Supple, JVD not distended Respiratory: Clear to auscultation bilaterally, Normal air movement Cardiovascular: No edema, Regular rate/rhythm, Normal S1 S2 Gastrointestinal: Normal bowel sounds, Soft and benign, Non-distended, No tenderness Musculoskeletal: No swelling, No tenderness Integumentary: No rashes, No cyanosis Neurological: Normal speech, Normal strength at 5/5 x4 extr, Cranial nerves 3-12 intact Laboratory Data at Discharge: WBC 7.40 thou/uL (4.3-10.9) 01/10/23 03:35 Hgb 11.5 g/dL (12.0-15.0) L 01/10/23 03:35 Hct 34.4 % (36.0-45.0) L 01/10/23 03:35 Plt Count 238 thou/uL (152-406) 01/10/23 03:35 PT 13.5 SECONDS (9.5-12.5) H 01/08/23 20:15 INR 1.23 01/08/23 20:15 Sodium 141 mEq/L (136-145) 01/11/23 02:35 Potassium 3.9 mEq/L (3.5-5.1) 01/11/23 02:35 BUN 15 mg/dL (7-18) 01/11/23 02:35 Creatinine 0.80 mg/dL (0.55-1.02) 01/11/23 02:35 Glucose 113 mg/dL (74-106) H 01/11/23 02:35 Phosphorus 3.6 mg/dL (2.5-4.9) 01/11/23 02:35 Magnesium 2.2 mg/dL (1.6-2.4) 01/11/23 02:35 Total Bilirubin 0.3 mg/dL (0.2-1.0) 01/08/23 20:15 AST 21 U/L (15-37) 01/08/23 20:15 ALT 25 U/L (13-56) 01/08/23 20:15 Alkaline Phosphatase 161 U/L (45-117) H 01/08/23 20:15 Home Medications: Fluticasone/Umeclidin/Vilanter [Trelegy Ellipta 100-62.5-25] 1 puff IH PRN 11/08/22 Valsartan 80 mg PO DAILY 11/08/22 hydroCHLOROthiazide [Hydrochlorothiazide*] 12.5 mg PO DAILY 11/08/22 Aspirin [Aspirin EC] 81 mg PO DAILY #30 tab 11/10/22 Atorvastatin Calcium [Lipitor] 40 mg PO BEDTIME #30 tab 11/10/22 Levothyroxine [Synthroid*] 50 mcg PO [id number] #30 tab 11/10/22 Apixaban [Eliquis] 5 mg PO BID #60 tab 01/11/23 Escitalopram [Lexapro*] 10 mg PO DAILY #30 tab 01/11/23 Metoprolol Succinate [Toprol Xl*] 25 mg PO BEDTIME #30 tab 01/11/23 New Medications: Apixaban [Eliquis] 5 mg PO BID #60 tab Escitalopram [Lexapro*] 10 mg PO DAILY #30 tab Metoprolol Succinate [Toprol Xl*] 25 mg PO BEDTIME #30 tab Diet: AHA Activity: Ad naa Followup: Brian Shabazz MD [ACTIVE - CAN ADMIT] - 1 Week Unknown,U [Primary Care Provider] - Time spent managing pt's care (in minutes): 33
[2023-01-11 18:01] VITALS: TEMP 97.2; O2SAT 97
[2023-01-11 18:15] VITALS: BP 135/72
--- NOTE | 2023-01-11 18:53 | PN ---
Date of Progress Note: 01/11/2023 Subjective: Seen by bedside. No further chest pain. Troponin stabilized. Review of Systems: No chest pain, shortness of breath, orthopnea, cough. No nausea, vomiting, diarrhea. All other syst ems reviewed and they were negative. Physical Examination: Vital Signs: Reviewed. Head and Neck: Pupils are equal, reactive to light. Intact eye movements. No JVD. No cervical lym phadenopathy. Neck is supple. Thyroid is not enlarged. Lungs: Clear to auscultation bilaterally. No rhonchi, wheezing, or crackles. No accessory muscle u se. Heart: Regular rate and rhythm. No extra sounds. Abdomen: Soft, nontender. Bowel sounds positive. No organomegaly. No masses or hernia. No rigidi ty or rebound. Extremities: No clubbing or cyanosis. Intact pulses. Skin: No rash. Neurologic: Alert, awake, oriented x3. No acute focal deficits appreciated. Investigations: Labs were reviewed. Assessment And Recommendations: 1.Non-ST elevation myocardial infarction with chest pain and positive troponin. However, coronary a ngiogram was done today. No significant coronary artery disease is found. This is likely demand isc hemia. No further workup is needed. 2.Thoracic aortic aneurysm with 4.[address] scan to be done in about 3 months to assure stability. 3.Hypertension. Blood pressure is acceptable. 4.Dyslipidemia. Continue statin. From Cardiology standpoint, the patient can be released to follow up with me in the office in 1 week. SR/MODL Voice ID: [id number] Report ID: [id number]
--- NOTE | 2023-01-11 19:02 | OP ---
Date of Procedure: 01/11/2023 Surgeon: BIPIN BRICENO Procedure Performed: Selective coronary angiogram. Indication: Non-ST elevation myocardial infarction. Access: Right radial artery 6-Ecuadorean closed with TR band. Complications: None. Bleeding: Less than 20 mL. Description Of Procedure: After risks, benefits, alternatives were explained, the patient agreed to procedure and signed informed consent. [facility]pped and draped in the usual sterile fashion. Then, I accessed right radial artery using pediatric micropuncture kit, placed a 6-Ecuadorean Slender sheath, took 5-Ecuadorean Robards 4.0 catheter into the aortic root, engaged left main and then right coronary artery, took standard views, and then the catheter was removed, sheath was removed and placed TR band with good hemostasis. Findings: 1.Left main; large and normal. 2.LAD is normal. Normal diagonal branches. 3.Left circumflex is normal. 4.RCA; it is dominant with luminal irregularities. Conclusion: No significant coronary artery disease. Recommendation: Medical management. SR/MODL Voice ID: [id number] Report ID: [id number]
== END 2023-01-11 19:04 | disposition home or self-care (01) | DRG 281 ==
LOC: ER 19:56 → 2ND 01-09 02:23 → OBSVTOIN 01-10 16:02
PROVIDERS: ADMIT Internal Medicine; ATTEND Internal Medicine
PROC: 4A023N7 Measurement of Cardiac Sampling and Pressure, Left Heart, Percutaneous Approach (ICD-10-PCS; principal; 2023-01-11)
PROC: B2111ZZ Fluoroscopy of Multiple Coronary Arteries using Low Osmolar Contrast (ICD-10-PCS; 2023-01-11)
DX: I21.4 Non-ST elevation (NSTEMI) myocardial infarction (principal); N17.9 Acute kidney failure, unspecified; I48.91 Unspecified atrial fibrillation; E78.00 Pure hypercholesterolemia, unspecified; E03.9 Hypothyroidism, unspecified; I10 Essential (primary) hypertension; F41.9 Anxiety disorder, unspecified; D72.829 Elevated white blood cell count, unspecified; I71.21 Aneurysm of the ascending aorta, without rupture; J45.20 Mild intermittent asthma, uncomplicated; Z79.01 Long term (current) use of anticoagulants; Z79.82 Long term (current) use of aspirin; Z79.890 Hormone replacement therapy; Z79.899 Other long term (current) drug therapy
CPT/HCPCS: 36415; 71045; 71275; 76937; 80048; 80076; 81003; 83735; 83880; 84100; 84443; 84484; 85025; 85610; 93005; 93454; 96372; 96374; 99285; C1893; J0461; J1644; J1650; J2001; J2250; J2270; J3010; J3535; J7030; J7040; Q9966; Q9967